=== PATIENT | female | born 1975 ===

== ENCOUNTER 2019-07-06 10:23 | Outpatient (CLI) | payer OTHER | END 2019-07-06 10:34 | disposition home or self-care (01) | LOC: SONOGRAMA 10:23 | DX: N84.0 Polyp of corpus uteri (principal) ==

== ENCOUNTER 2020-04-19 12:37 | Outpatient (CLI) | payer OTHER | END 2020-04-19 14:00 | disposition home or self-care (01) | LOC: OFIC 805 12:37 | PROVIDERS: ATTEND Otolaryngology | DX: K21.00 Gastro-esophageal reflux disease with esophagitis, without bleeding (principal); J03.80 Acute tonsillitis due to other specified organisms ==